=== PATIENT | male | born 1970 | race Two or more races ===

== ENCOUNTER 2021-06-14 06:25 | Outpatient (CLI) | payer OTHER | END 2021-06-14 06:26 | disposition home or self-care (01) | LOC: LAB 06:25 | PROVIDERS: ATTEND General Practice | DX: E03.8 Other specified hypothyroidism (principal); C61 Malignant neoplasm of prostate; K92.2 Gastrointestinal hemorrhage, unspecified; D64.89 Other specified anemias; N39.0 Urinary tract infection, site not specified; E78.2 Mixed hyperlipidemia; N41.1 Chronic prostatitis; R42 Dizziness and giddiness; Z13.29 Encounter for screening for other suspected endocrine disorder; K92.1 Melena ==